=== PATIENT | female | born 1955 | race Caucasian/White ===

== ENCOUNTER 2018-01-02 13:46 | Emergency (ER) | payer MEDICAID ==
[~2018-01-02] VITALS: Ht 165.1 cm; Wt 100.0 kg
[~2018-01-02 13:46] MED LIST: AMIO200T57 PO; DAPA10TA PO; ENOX30SY10 SUBCUT; ENOX80SY7 SUBCUT; GLIM4TAB PO; LEVO750T21 PO; LISI2.5T2 PO; METF10002 PO; METO25TA6 PO; WARF5TAB PO
[2018-01-02 14:24] LABS: BASOPHILS # (AUTO) 0.1 X10'3 (0-0.2); BASOPHILS % (AUTO) 0.3 % (0-1); EOSINOPHILS # (AUTO) 0.5 X10'3 (0-0.9); EOSINOPHILS % (AUTO) 2.9 % (0-6); HEMATOCRIT 25.3 % (35.0-45.0); HEMOGLOBIN 7.3 g/dl (12.0-16.0); LYMPHOCYTES # (AUTO) 2.1 X10'3 (1.1-4.8); LYMPHOCYTES % (AUTO) 11.7 % (21-51); MEAN CORPUSCULAR HEMOGLOBIN 16.2 PG (27.0-31.0); MEAN CORPUSCULAR HGB CONC 28.7 % (33.0-36.5); MEAN CORPUSCULAR VOLUME 56.4 FL (78-98); MEAN PLATELET VOLUME 7.1 FL (7.4-10.4); MONOCYTES # (AUTO) 1.3 X10'3 (0-0.9); MONOCYTES % (AUTO) 7.2 % (2-12); NEUTROPHILS % (AUTO) 77.9 % (42-75); PLATELET COUNT 431 X10'3 (140-440); RED BLOOD COUNT 4.49 X10'6 (4.20-5.60); RED CELL DISTRIBUTION WIDTH 22.5 % (11.5-14.5)
[2018-01-02 14:44] LABS: ANISOCYTOSIS 3+; HYPOCHROMASIA 2+; MICROCYTOSIS 3+; PLATELET ESTIMATE NORMAL
[2018-01-02 14:45] LABS: ELLIPTOCYTES FEW; STOMATOCYTES 1+; TEAR DROP CELLS FEW
[2018-01-02 15:06] LABS: POLYCHROMASIA 1+
[2018-01-02 15:07] LABS: GIANT PLATELET FEW; LARGE PLATELETS FEW
[2018-01-02 15:08] LABS: SCHISTOCYTES FEW; SPHEROCYTES FEW
[2018-01-02 16:31] LABS: CLARITY,URINE CLEAR (Clear); COLOR,URINE YELLOW (Yellow); GLUCOSE, URINE 250 mg/dl (Neg); KETONES,URINE NEGATIVE (Neg); LEUKOCYTE ESTERASE ,URINE NEGATIVE (Neg); NITRITES, URINE NEGATIVE (Neg); OCCULT BLOOD,URINE LARGE (Neg); PROTEIN,URINE NEGATIVE (Neg); UROBILINOGEN,URINE 0.2 E.U/dL (0.2-1.0)
[2018-01-02 16:33] LABS: UA COLLECTION TYPE CLN CATCH MIDSTREAM
[2018-01-02 16:42] LABS: BACTERIA,URINE NONE SEEN /HPF (Neg); RBC,URINE 0-2 /HPF (0-2); SQUAMOUS EPITHELIAL CELL,UR FEW /LPF (FEW); WBC,URINE 0-4 /HPF (0-4)
[2018-01-02] MEDS ORDERED: FERR325T28 PO (16:47)
[2018-01-02 17:04] VITALS: BP 152/82
[2018-01-06 10:23] LABS: OCCULT BLOOD STOOL NEGATIVE (Neg)
== END 2018-01-02 17:07 | disposition home or self-care (01) ==
LOC: ER 13:46
DX: D64.9 Anemia, unspecified (principal); D72.829 Elevated white blood cell count, unspecified; I48.91 Unspecified atrial fibrillation; I10 Essential (primary) hypertension; E11.9 Type 2 diabetes mellitus without complications; Z88.8 Allergy status to other drugs, medicaments and biological substances
CPT/HCPCS: 36415; 71046; 81001; 82272; 85025; 86885; 86900; 86901; 93005; 99285

== ENCOUNTER 2018-03-11 10:27 | Day surgery (SDC) | payer MEDICAID ==
[~2018-03-11] VITALS: Ht 162.6 cm; Wt 95.2 kg
[2018-03-11] VITALS (9 sets, daily range): BP systolic 142–189; BP diastolic 53–96
[~2018-03-11 10:27] MED LIST changes: -METF10002 PO; +METF10004 PO
[2018-03-11] MEDS ORDERED: normal saline 1000ml 1,000 ML IV SCH (10:50)
[2018-03-11] MEDS ORDERED: MIDAZolam 5mg/ml 2ml vial IV ONE (10:55)
[2018-03-11] MEDS ORDERED: fentaNYL/PF 50MCG/1 ML 2ML syringe IV ONE (10:55)
[2018-03-11] MEDS ORDERED: LOSA50TA37 PO (12:08)
[2018-03-11] MEDS ORDERED: FURO-150 PO (12:08)
[2018-03-11] MEDS ORDERED: DIGO250T77 PO (12:08)
[2018-03-11] MEDS ORDERED: FERR-119 PO (12:08)
[2018-03-11] MEDS ORDERED: DILT240C51 PO (12:08)
[2018-03-11] MEDS ORDERED: ONDA4TAB9 SL (12:08)
[2018-03-11] MEDS ORDERED: APIX5TAB3 PO (12:08)
[2018-03-11] MEDS ORDERED: METO100T14 PO (12:08)
[2018-03-11] MEDS ORDERED: ACET250T3 PO (12:08)
== END 2018-03-11 14:45 | disposition home or self-care (01) ==
LOC: SSTAY O 10:27
PROVIDERS: ATTEND Internal Medicine Interventional Cardiology
DX: I48.2 Chronic atrial fibrillation (principal); I34.0 Nonrheumatic mitral (valve) insufficiency; I10 Essential (primary) hypertension; E11.9 Type 2 diabetes mellitus without complications; I27.20 Pulmonary hypertension, unspecified; Z79.01 Long term (current) use of anticoagulants; Z86.73 Personal history of transient ischemic attack (TIA), and cerebral infarction without residual deficits; Z79.84 Long term (current) use of oral hypoglycemic drugs; Z91.013 Allergy to seafood; Z88.8 Allergy status to other drugs, medicaments and biological substances; Z79.899 Other long term (current) drug therapy
CPT/HCPCS: 82948; 93005; 93312; J2250; J3010; J7030; A4620

== ENCOUNTER 2020-12-01 06:06 | Day surgery (SDC) | payer MEDICARE ==
[~2020-12-01] VITALS: Ht 165.1 cm; Wt 107.8 kg
[2020-12-01] VITALS (9 sets, daily range): BP systolic 153–174; BP diastolic 82–103
[~2020-12-01 06:06] MED LIST changes: +ACET500C46 PO; -AMIO200T57 PO; +APIX5TAB3 PO; -DAPA10TA PO; +DILT240C51 PO; -ENOX30SY10 SUBCUT; -ENOX80SY7 SUBCUT; +FERR324T PO; +FURO-150 PO; -GLIM4TAB PO; -LEVO750T21 PO; -LISI2.5T2 PO; +LOSA50TA64 PO; -METF10004 PO; +METO100T14 PO; -METO25TA6 PO; +ONDA4TAB9 SL; -WARF5TAB PO
[2020-12-01] MEDS ORDERED: LISI40TA13 PO (07:08)
[2020-12-01] MEDS ORDERED: albumin 25% 100mL bottle x 1 IV PRN (09:55)
[2020-12-01] MEDS ORDERED: normal saline 1000ml 1,000 ML IV PRN (09:55)
[2020-12-01 10:19] LABS: TOTAL PROTEIN,BODY FLUID 4.6 G/DL
== END 2020-12-01 10:50 | disposition home or self-care (01) ==
LOC: SSTAY O 06:06
PROVIDERS: ATTEND Radiology Vascular & Interventional Radiology
DX: R18.8 Other ascites (principal); I48.91 Unspecified atrial fibrillation; E11.9 Type 2 diabetes mellitus without complications; I10 Essential (primary) hypertension; H54.8 Legal blindness, as defined in USA; Z85.41 Personal history of malignant neoplasm of cervix uteri; Z79.01 Long term (current) use of anticoagulants; Z91.013 Allergy to seafood; Z88.8 Allergy status to other drugs, medicaments and biological substances; Z79.899 Other long term (current) drug therapy
CPT/HCPCS: 49083; 82945; 84157; P9047

== ENCOUNTER 2021-03-22 06:56 | Day surgery (SDC) | payer MEDICARE ==
[~2021-03-22] VITALS: Ht 162.6 cm; Wt 102.3 kg
[2021-03-22] VITALS (10 sets, daily range): BP systolic 153–173; BP diastolic 93–130
[~2021-03-22 06:56] MED LIST changes: -FERR324T PO; +LISI40TA13 PO; -LOSA50TA64 PO; -ONDA4TAB9 SL
[2021-03-22] MEDS ORDERED: albumin 25% 100mL bottle x 1 IV PRN (07:25)
== END 2021-03-22 11:15 | disposition home or self-care (01) ==
LOC: SSTAY O 06:56
PROVIDERS: ATTEND Radiology Diagnostic Radiology
DX: R18.8 Other ascites (principal); E11.9 Type 2 diabetes mellitus without complications; I10 Essential (primary) hypertension; I48.91 Unspecified atrial fibrillation; H54.8 Legal blindness, as defined in USA; Z85.41 Personal history of malignant neoplasm of cervix uteri; Z79.01 Long term (current) use of anticoagulants; Z88.8 Allergy status to other drugs, medicaments and biological substances; Z79.899 Other long term (current) drug therapy
CPT/HCPCS: 49083; P9047

== ENCOUNTER 2021-07-21 08:04 | Day surgery (SDC) | payer MEDICARE ==
[~2021-07-21] VITALS: Ht 165.1 cm; Wt 102.6 kg
[2021-07-21] VITALS (8 sets, daily range): BP systolic 122–153; BP diastolic 57–89
[2021-07-21] MEDS ORDERED: albumin 25% 100mL bottle x 1 IV PRN (08:35)
[2021-07-21] MEDS ORDERED: METF-438 PO (08:46)
[2021-07-21] MEDS ORDERED: LIDOcaine 1% (10mg/ml) 2ml vial ONE (08:49)
== END 2021-07-21 11:09 | disposition home or self-care (01) ==
LOC: SSTAY O 08:04
PROVIDERS: ATTEND Preventive Medicine Aerospace Medicine
DX: R18.8 Other ascites (principal); R14.0 Abdominal distension (gaseous); I10 Essential (primary) hypertension; E11.9 Type 2 diabetes mellitus without complications; I48.91 Unspecified atrial fibrillation; Z85.41 Personal history of malignant neoplasm of cervix uteri; Z79.84 Long term (current) use of oral hypoglycemic drugs; Z79.899 Other long term (current) drug therapy; Z79.01 Long term (current) use of anticoagulants; Z91.013 Allergy to seafood; Z88.8 Allergy status to other drugs, medicaments and biological substances
CPT/HCPCS: 49083; J2001; P9047

== ENCOUNTER 2021-08-18 08:10 | Day surgery (SDC) | payer MEDICARE ==
[~2021-08-18] VITALS: Ht 165.1 cm; Wt 104.1 kg
[~2021-08-18 08:10] MED LIST changes: +METF-438 PO
[2021-08-18] MEDS ORDERED: LIDOcaine 1% 30ml preserv. free vial IJ STA (08:49)
[2021-08-18] MEDS ORDERED: albumin (human) 25% 100 ML IV solution IV PRN (09:05)
[2021-08-18 09:09] VITALS: BP 135/83
[2021-08-18] MEDS ORDERED: albumin 25% 100mL bottle x 1 IV PRN (09:30)
[2021-08-18 09:45] VITALS: BP 172/110
[2021-08-18 10:00] VITALS: BP 160/96
[2021-08-18 10:15] VITALS: BP 159/105
[2021-08-18 10:21] VITALS: BP 131/91
[2021-08-18 10:30] VITALS: BP 122/50
== END 2021-08-18 10:40 | disposition home or self-care (01) ==
LOC: SSTAY O 08:10
PROVIDERS: ATTEND Radiology Vascular & Interventional Radiology
DX: R18.8 Other ascites (principal); R14.0 Abdominal distension (gaseous); E11.9 Type 2 diabetes mellitus without complications; I10 Essential (primary) hypertension; I48.91 Unspecified atrial fibrillation; H54.8 Legal blindness, as defined in USA; Z85.41 Personal history of malignant neoplasm of cervix uteri; Z91.013 Allergy to seafood
CPT/HCPCS: 49083; J2001; P9047

== ENCOUNTER 2021-09-25 06:49 | Day surgery (SDC) | payer MEDICARE ==
[~2021-09-25] VITALS: Ht 165.1 cm; Wt 104.1 kg
[2021-09-25 07:13] VITALS: BP 128/87
[2021-09-25] MEDS ORDERED: albumin 25% 100mL bottle x 1 IV PRN (07:15)
[2021-09-25] MEDS ORDERED: normal saline 1000ml 1,000 ML IV PRN (07:15)
[2021-09-25] MEDS ORDERED: LIDOcaine 1% 30ml preserv. free vial SQ STA (07:24)
[2021-09-25 09:00] VITALS: BP 144/108
[2021-09-25 09:28] VITALS: BP 151/90
== END 2021-09-25 09:40 | disposition home or self-care (01) ==
LOC: SSTAY O 06:49
PROVIDERS: ATTEND Radiology Diagnostic Radiology
DX: R18.8 Other ascites (principal); I10 Essential (primary) hypertension; E11.9 Type 2 diabetes mellitus without complications; I48.91 Unspecified atrial fibrillation; H54.8 Legal blindness, as defined in USA; Z79.01 Long term (current) use of anticoagulants; Z85.41 Personal history of malignant neoplasm of cervix uteri; Z88.8 Allergy status to other drugs, medicaments and biological substances; Z91.013 Allergy to seafood; Z79.84 Long term (current) use of oral hypoglycemic drugs; Z79.899 Other long term (current) drug therapy
CPT/HCPCS: 49083; P9047; 36569; 76937

== ENCOUNTER 2021-10-19 06:07 | Day surgery (SDC) | payer MEDICARE ==
[2021-10-19] VITALS (7 sets, daily range): BP systolic 135–170; BP diastolic 74–90
[~2021-10-19] VITALS: Ht 165.1 cm; Wt 104.9 kg
[2021-10-19] MEDS ORDERED: albumin 25% 100mL bottle x 1 IV PRN (06:35)
[2021-10-19] MEDS ORDERED: LIDOcaine 1% 30ml preserv. free vial IJ STA (07:39)
== END 2021-10-19 09:30 | disposition home or self-care (01) ==
LOC: SSTAY O 06:07
PROVIDERS: ATTEND Preventive Medicine Aerospace Medicine
DX: R18.8 Other ascites (principal); E11.9 Type 2 diabetes mellitus without complications; I10 Essential (primary) hypertension; I48.91 Unspecified atrial fibrillation; H54.8 Legal blindness, as defined in USA; Z85.41 Personal history of malignant neoplasm of cervix uteri; Z79.01 Long term (current) use of anticoagulants; Z79.899 Other long term (current) drug therapy
CPT/HCPCS: 49083; J3490; P9047

== ENCOUNTER 2021-11-23 07:23 | Day surgery (SDC) | payer MEDICARE ==
[~2021-11-23] VITALS: Ht 165.1 cm; Wt 105.1 kg
[2021-11-23] VITALS (9 sets, daily range): BP systolic 109–143; BP diastolic 45–94
[2021-11-23] MEDS ORDERED: ondansetron/PF 4mg/2ml inj IV ONE (08:10)
[2021-11-23] MEDS: albumin 25% 100mL bottle x 1 IV PRN ×2 (09:47→11:09)
== END 2021-11-23 11:15 | disposition home or self-care (01) ==
LOC: SSTAY O 07:23
PROVIDERS: ATTEND Radiology Vascular & Interventional Radiology
DX: R18.8 Other ascites (principal); I48.91 Unspecified atrial fibrillation; E11.9 Type 2 diabetes mellitus without complications; I10 Essential (primary) hypertension; H54.8 Legal blindness, as defined in USA; Z85.41 Personal history of malignant neoplasm of cervix uteri; Z79.01 Long term (current) use of anticoagulants; Z79.899 Other long term (current) drug therapy; Z91.013 Allergy to seafood; Z88.8 Allergy status to other drugs, medicaments and biological substances
CPT/HCPCS: 49083; 82948; J2405; P9047

== ENCOUNTER 2021-12-25 07:04 | Day surgery (SDC) | payer MEDICARE ==
[2021-12-25] VITALS (10 sets, daily range): BP systolic 96–145; BP diastolic 47–78
[~2021-12-25] VITALS: Ht 165.1 cm; Wt 106.5 kg
[2021-12-25] MEDS ORDERED: LIDOcaine 1%/PF 5ML 10 MG/ML VIAL SQ ONE (07:15)
[2021-12-25] MEDS ORDERED: normal saline 1000ml 1,000 ML IV PRN (07:25)
[2021-12-25] MEDS: albumin 25% 100mL bottle x 1 IV PRN ×2 (09:22→11:13)
== END 2021-12-25 10:55 | disposition home or self-care (01) ==
LOC: SSTAY O 07:04
PROVIDERS: ATTEND Radiology Diagnostic Radiology
DX: R18.8 Other ascites (principal); R14.0 Abdominal distension (gaseous); I48.91 Unspecified atrial fibrillation; E11.9 Type 2 diabetes mellitus without complications; I10 Essential (primary) hypertension; H54.8 Legal blindness, as defined in USA; Z88.8 Allergy status to other drugs, medicaments and biological substances; Z91.013 Allergy to seafood; Z85.41 Personal history of malignant neoplasm of cervix uteri; Z79.01 Long term (current) use of anticoagulants; Z79.84 Long term (current) use of oral hypoglycemic drugs; Z79.899 Other long term (current) drug therapy
CPT/HCPCS: 49083; J3490; P9047

== ENCOUNTER 2022-01-19 07:14 | Day surgery (SDC) | payer MEDICARE ==
[~2022-01-19] VITALS: Ht 165.1 cm; Wt 106.6 kg
[2022-01-19] VITALS (7 sets, daily range): BP systolic 122–138; BP diastolic 60–90
[~2022-01-19 07:14] MED LIST changes: -ACET500C46 PO; +ACET500C62 PO
[2022-01-19] MEDS ORDERED: albumin 25% 100mL bottle x 1 IV PRN (07:35)
[2022-01-19] MEDS ORDERED: FURO20TA4 PO (08:09)
[2022-01-19] MEDS ORDERED: LOSA50TA64 PO (08:09)
[2022-01-19] MEDS ORDERED: LIDOcaine 1%/PF 5ML 10 MG/ML VIAL IJ ONE (08:30)
== END 2022-01-19 10:21 | disposition home or self-care (01) ==
LOC: SSTAY O 07:14
PROVIDERS: ATTEND Preventive Medicine Aerospace Medicine
DX: R18.8 Other ascites (principal); R14.0 Abdominal distension (gaseous); E11.9 Type 2 diabetes mellitus without complications; I10 Essential (primary) hypertension; I48.91 Unspecified atrial fibrillation; H54.8 Legal blindness, as defined in USA; Z85.41 Personal history of malignant neoplasm of cervix uteri; Z79.01 Long term (current) use of anticoagulants; Z79.899 Other long term (current) drug therapy
CPT/HCPCS: 49083; J3490; P9047

== ENCOUNTER 2022-02-12 07:28 | Day surgery (SDC) | payer MEDICARE ==
[~2022-02-12] VITALS: Ht 165.1 cm; Wt 108.0 kg
[2022-02-12] VITALS (9 sets, daily range): BP systolic 120–153; BP diastolic 67–93
[~2022-02-12 07:28] MED LIST changes: -FURO-150 PO; +FURO20TA4 PO; -LISI40TA13 PO; +LOSA50TA64 PO
[2022-02-12] MEDS ORDERED: LIDOcaine 1%/PF 5ML 10 MG/ML VIAL IM ONE (08:20)
[2022-02-12] MEDS: albumin 25% 100mL bottle x 1 IV PRN ×2 (09:15→09:55)
== END 2022-02-12 10:45 | disposition home or self-care (01) ==
LOC: SSTAY O 07:28
PROVIDERS: ATTEND Radiology Vascular & Interventional Radiology
DX: R18.8 Other ascites (principal); R14.0 Abdominal distension (gaseous); I48.91 Unspecified atrial fibrillation; E11.9 Type 2 diabetes mellitus without complications; I10 Essential (primary) hypertension; H54.8 Legal blindness, as defined in USA; Z85.41 Personal history of malignant neoplasm of cervix uteri; Z91.013 Allergy to seafood; Z88.8 Allergy status to other drugs, medicaments and biological substances; Z79.01 Long term (current) use of anticoagulants; Z79.899 Other long term (current) drug therapy; Z79.84 Long term (current) use of oral hypoglycemic drugs
CPT/HCPCS: 49083; J3490; P9047

== ENCOUNTER 2022-03-13 06:24 | Day surgery (SDC) | payer MEDICARE ==
[2022-03-13] VITALS (8 sets, daily range): BP systolic 104–129; BP diastolic 55–80
[~2022-03-13] VITALS: Ht 165.1 cm; Wt 112.5 kg
[2022-03-13] MEDS ORDERED: folic acid PO (07:11)
[2022-03-13] MEDS ORDERED: CYAN10007 IM (07:11)
[2022-03-13] MEDS ORDERED: LIDOcaine 1%/PF 5ML 10 MG/ML VIAL SQ ONE (07:20)
[2022-03-13] MEDS: albumin 25% 100mL bottle x 1 IV PRN ×2 (08:53→08:54)
== END 2022-03-13 10:30 | disposition home or self-care (01) ==
LOC: SSTAY O 06:24
PROVIDERS: ATTEND Radiology Vascular & Interventional Radiology
DX: R18.8 Other ascites (principal); R14.0 Abdominal distension (gaseous); E11.9 Type 2 diabetes mellitus without complications; I10 Essential (primary) hypertension; H54.8 Legal blindness, as defined in USA; I48.91 Unspecified atrial fibrillation; Z85.41 Personal history of malignant neoplasm of cervix uteri; Z79.01 Long term (current) use of anticoagulants
CPT/HCPCS: 49083; J3490; P9047; A6258

== ENCOUNTER 2022-04-04 11:56 | Day surgery (SDC) | payer MEDICARE ==
[~2022-04-04] VITALS: Ht 165.1 cm; Wt 110.9 kg
[~2022-04-04 11:56] MED LIST changes: +CYAN10007 IM; +folic acid PO
[2022-04-04 12:11] VITALS: BP 156/93
[2022-04-04 14:01] VITALS: BP 147/93
[2022-04-04 14:17] VITALS: BP 123/73
[2022-04-04 14:32] VITALS: BP 115/71
[2022-04-04 14:47] VITALS: BP 125/73
[2022-04-04] MEDS: albumin 25% 100mL bottle x 1 IV PRN ×2 (14:47→14:48)
[2022-04-04 15:02] VITALS: BP 129/44
== END 2022-04-04 15:20 | disposition home or self-care (01) ==
LOC: SSTAY O 11:56
PROVIDERS: ATTEND Radiology Diagnostic Radiology
DX: R18.8 Other ascites (principal); I48.91 Unspecified atrial fibrillation; E11.9 Type 2 diabetes mellitus without complications; I10 Essential (primary) hypertension; H54.8 Legal blindness, as defined in USA; Z79.899 Other long term (current) drug therapy; Z79.01 Long term (current) use of anticoagulants; Z85.41 Personal history of malignant neoplasm of cervix uteri
CPT/HCPCS: 49083; P9047; Z7610; A6258

== ENCOUNTER 2022-05-31 06:45 | Day surgery (SDC) | payer MEDICARE ==
[~2022-05-31] VITALS: Ht 165.1 cm; Wt 109.2 kg
[2022-05-31] VITALS (8 sets, daily range): BP systolic 134–156; BP diastolic 66–103
[2022-05-31] MEDS ORDERED: LIDOcaine 1%/PF 5ML 10 MG/ML VIAL IJ ONE (07:40)
[2022-05-31] MEDS: albumin 25% 100mL bottle x 1 IV PRN ×2 (08:47→09:25)
--- NOTE | 2022-05-31 15:52 | NUR ---
Transferred care to Phu RODRIGUEZ.
== END 2022-05-31 10:10 | disposition home or self-care (01) ==
LOC: SSTAY O 06:45
PROVIDERS: ATTEND Radiology Vascular & Interventional Radiology
DX: R18.8 Other ascites (principal); E11.9 Type 2 diabetes mellitus without complications; H54.8 Legal blindness, as defined in USA; I10 Essential (primary) hypertension; Z79.01 Long term (current) use of anticoagulants; D50.9 Iron deficiency anemia, unspecified; I48.91 Unspecified atrial fibrillation; Z85.41 Personal history of malignant neoplasm of cervix uteri; Z79.899 Other long term (current) drug therapy; Z98.890 Other specified postprocedural states
CPT/HCPCS: 49083; J3490; P9047; A6258; A6449

== ENCOUNTER 2022-06-21 06:56 | Day surgery (SDC) | payer MEDICARE ==
[2022-06-21] VITALS (11 sets, daily range): BP systolic 139–164; BP diastolic 67–106
[~2022-06-21] VITALS: Ht 165.1 cm; Wt 106.2 kg
[~2022-06-21 06:56] MED LIST changes: -folic acid PO
[2022-06-21] MEDS ORDERED: LIDOcaine 1%/PF 5ML 10 MG/ML VIAL IJ ONE (07:50)
[2022-06-21] MEDS: albumin 25% 100mL bottle x 1 IV PRN ×2 (08:48→09:35)
== END 2022-06-21 10:40 | disposition home or self-care (01) ==
LOC: SSTAY O 06:56
PROVIDERS: ATTEND Radiology Vascular & Interventional Radiology
DX: R18.8 Other ascites (principal); I48.91 Unspecified atrial fibrillation; E11.9 Type 2 diabetes mellitus without complications; I10 Essential (primary) hypertension; D50.9 Iron deficiency anemia, unspecified; H54.8 Legal blindness, as defined in USA; Z79.01 Long term (current) use of anticoagulants; Z91.013 Allergy to seafood; Z79.899 Other long term (current) drug therapy; Z85.41 Personal history of malignant neoplasm of cervix uteri
CPT/HCPCS: 49083; J3490; P9047; A6258

== ENCOUNTER 2022-07-09 06:30 | Day surgery (SDC) | payer MEDICARE ==
[~2022-07-09] VITALS: Ht 165.1 cm; Wt 106.0 kg
[2022-07-09] VITALS (7 sets, daily range): BP systolic 130–162; BP diastolic 63–99
[2022-07-09] MEDS ORDERED: LIDOcaine 1% 30ml preserv. free vial SQ STA (08:14)
[2022-07-09] MEDS: albumin 25% 100mL bottle x 1 IV PRN ×2 (08:40→09:13)
--- NOTE | 2022-07-09 09:00 | NUR ---
Reported CBC resulted to Diana RODRIGUEZ, results to be addressed with MD VIKTORIYA.
== END 2022-07-09 09:50 | disposition home or self-care (01) ==
LOC: SSTAY O 06:30
PROVIDERS: ATTEND Radiology Diagnostic Radiology
DX: R18.8 Other ascites (principal); I48.91 Unspecified atrial fibrillation; E11.9 Type 2 diabetes mellitus without complications; I10 Essential (primary) hypertension; H54.8 Legal blindness, as defined in USA; D50.9 Iron deficiency anemia, unspecified; Z79.01 Long term (current) use of anticoagulants; Z79.899 Other long term (current) drug therapy; Z98.890 Other specified postprocedural states; Z91.013 Allergy to seafood
CPT/HCPCS: 49083; J3490; P9047; A6258; A6449

== ENCOUNTER 2022-07-31 07:29 | Day surgery (SDC) | payer MEDICARE ==
[2022-07-31] VITALS (10 sets, daily range): BP systolic 130–159; BP diastolic 73–124
[~2022-07-31] VITALS: Ht 165.1 cm; Wt 109.6 kg
[2022-07-31] MEDS ORDERED: LIDOcaine 1% 30ml preserv. free vial SQ STA (07:51)
[2022-07-31] MEDS: albumin 25% 100mL bottle x 1 IV PRN ×2 (09:50→09:51)
== END 2022-07-31 11:20 | disposition home or self-care (01) ==
LOC: SSTAY O 07:29
PROVIDERS: ATTEND Radiology Diagnostic Radiology
DX: R18.8 Other ascites (principal); I48.91 Unspecified atrial fibrillation; E11.9 Type 2 diabetes mellitus without complications; I10 Essential (primary) hypertension; D50.9 Iron deficiency anemia, unspecified; H54.8 Legal blindness, as defined in USA
CPT/HCPCS: 49083; J3490; P9047; A6258

== ENCOUNTER 2022-08-14 06:37 | Day surgery (SDC) | payer MEDICARE ==
[2022-08-14] VITALS (8 sets, daily range): BP systolic 116–143; BP diastolic 71–87
[~2022-08-14] VITALS: Ht 165.1 cm; Wt 106.6 kg
[2022-08-14] MEDS ORDERED: normal saline 1000ml 1,000 ML IV PRN (07:05)
[2022-08-14 07:12] LABS: BASOPHILS # (AUTO) 0.1 X10'3 (0-0.2); BASOPHILS % (AUTO) 0.5 % (0-1); EOSINOPHILS # (AUTO) 0.1 X10'3 (0-0.9); EOSINOPHILS % (AUTO) 1.2 % (0-6); HEMATOCRIT 32.9 % (35.0-45.0); HEMOGLOBIN 10.1 g/dl (12.0-16.0); LYMPHOCYTES # (AUTO) 0.8 X10'3 (1.1-4.8); LYMPHOCYTES % (AUTO) 7.4 % (21-51); MEAN CORPUSCULAR HEMOGLOBIN 22.9 PG (27.0-31.0); MEAN CORPUSCULAR HGB CONC 30.8 g/dL (33.0-36.5); MEAN CORPUSCULAR VOLUME 74.3 FL (78-98); MEAN PLATELET VOLUME 6.4 FL (7.4-10.4); MONOCYTES % (AUTO) 9.3 % (2-12); NEUTROPHILS # (AUTO) 9.1 X10'3 (1.8-7.7); NEUTROPHILS % (AUTO) 81.6 % (42-75); PLATELET COUNT 328 X10'3 (140-440); RED BLOOD COUNT 4.42 X10'6 (4.20-5.60); WHITE BLOOD COUNT 11.2 X10'3 (4.5-11.0)
[2022-08-14 07:53] LABS: ALBUMIN 2.8 G/DL (3.4-5.0); ANION GAP 10 (8-16); BLOOD UREA NITROGEN 17 MG/DL (7-18); BUN/CREATININE RATIO 17.3 (6.6-38.0); CHLORIDE 108 MMOL/L (99-107); CREATININE 0.98 MG/DL (0.40-0.90); GLUCOSE 148 MG/DL (70-104); POTASSIUM 4.3 MMOL/L (3.5-5.1); SODIUM 140 MMOL/L (135-145); TOTAL CARBON DIOXIDE 22.2 MMOL/L (24-32); eGFR 56 ML/MIN
[2022-08-14] MEDS ORDERED: midazolam 1 mg/ML 2ml injection ONE (08:10)
[2022-08-14] MEDS ORDERED: FENTANYL CITRATE/PF 50 MCG/1 ML VIAL ONE (08:10)
[2022-08-14] MEDS ORDERED: LIDOcaine 1% 30ml preserv. free vial ONE (08:11)
[2022-08-14 08:18] LABS: ANISOCYTOSIS 2+; MICROCYTOSIS 1+; PLATELET ESTIMATE NORMAL
[2022-08-14 08:19] LABS: POLYCHROMASIA 1+
[2022-08-14] MEDS ORDERED: MESSAGE TO NURSING PO NR (10:00)
[2022-08-14] MEDS ORDERED: albumin (human) 25% 100 ML IV solution IV ONE (10:40)
--- NOTE | 2022-08-14 11:38 | NUR ---
Per MICHAEL Cano in IR. OK for patient to DC after albumin infusion complete.
== END 2022-08-14 12:00 | disposition home or self-care (01) ==
LOC: SSTAY O 06:37
PROVIDERS: ATTEND Radiology Vascular & Interventional Radiology
DX: K74.60 Unspecified cirrhosis of liver (principal); R18.8 Other ascites; I48.91 Unspecified atrial fibrillation; E11.9 Type 2 diabetes mellitus without complications; I10 Essential (primary) hypertension; D50.9 Iron deficiency anemia, unspecified; H54.8 Legal blindness, as defined in USA; Z88.8 Allergy status to other drugs, medicaments and biological substances; Z91.013 Allergy to seafood; Z79.899 Other long term (current) drug therapy
CPT/HCPCS: 36415; 37200; 49083; 75889; 75970; 80048; 85025; 85610; 99152; 99153; C1769; C1894; C2625; J2250; J3010; J3490; J7030; P9047; Q9967; 85008; 88307; 88313; A4620

== ENCOUNTER 2022-09-07 07:25 | Day surgery (SDC) | payer MEDICARE ==
[2022-09-07] VITALS (10 sets, daily range): BP systolic 114–139; BP diastolic 54–84
[~2022-09-07] VITALS: Ht 165.1 cm; Wt 110.8 kg
[~2022-09-07 07:25] MED LIST changes: +iohexol 300mg/ml 100ml inj. ONE
[2022-09-07] MEDS ORDERED: LIDOcaine 1% 30ml preserv. free vial SQ STA (07:42)
[2022-09-07] MEDS: albumin 25% 100mL bottle x 1 IV PRN ×2 (09:04→09:37)
== END 2022-09-07 10:35 | disposition home or self-care (01) ==
LOC: SSTAY O 07:25
PROVIDERS: ATTEND Radiology Vascular & Interventional Radiology
DX: R18.8 Other ascites (principal); K74.60 Unspecified cirrhosis of liver; I48.91 Unspecified atrial fibrillation; I10 Essential (primary) hypertension; E11.9 Type 2 diabetes mellitus without complications; D50.9 Iron deficiency anemia, unspecified; H54.8 Legal blindness, as defined in USA; Z88.8 Allergy status to other drugs, medicaments and biological substances; Z79.899 Other long term (current) drug therapy; Z79.01 Long term (current) use of anticoagulants; Z85.41 Personal history of malignant neoplasm of cervix uteri
CPT/HCPCS: 49083; J3490; P9047; Q9967; A6258

== ENCOUNTER 2022-09-25 07:04 | Day surgery (SDC) | payer MEDICARE ==
[~2022-09-25] VITALS: Ht 165.1 cm; Wt 107.8 kg
[2022-09-25] VITALS (10 sets, daily range): BP systolic 118–152; BP diastolic 59–91
[~2022-09-25 07:04] MED LIST changes: -iohexol 300mg/ml 100ml inj. ONE
[2022-09-25] MEDS ORDERED: LIDOcaine 1% 30ml preserv. free vial SQ STA (07:17)
[2022-09-25] MEDS: albumin 25% 100mL bottle x 1 IV PRN ×2 (09:01→09:49)
== END 2022-09-25 10:25 | disposition home or self-care (01) ==
LOC: SSTAY O 07:04
PROVIDERS: ATTEND Radiology Vascular & Interventional Radiology
DX: R18.8 Other ascites (principal); K76.0 Fatty (change of) liver, not elsewhere classified; I48.91 Unspecified atrial fibrillation; E11.9 Type 2 diabetes mellitus without complications; I11.0 Hypertensive heart disease with heart failure; I50.9 Heart failure, unspecified; H54.8 Legal blindness, as defined in USA; D50.9 Iron deficiency anemia, unspecified; C53.9 Malignant neoplasm of cervix uteri, unspecified; Z91.013 Allergy to seafood; Z88.8 Allergy status to other drugs, medicaments and biological substances; Z79.84 Long term (current) use of oral hypoglycemic drugs; Z79.01 Long term (current) use of anticoagulants; Z79.899 Other long term (current) drug therapy
CPT/HCPCS: 49083; J3490; P9047; A6258; A6449

== ENCOUNTER 2022-10-16 07:59 | Day surgery (SDC) | payer MEDICARE ==
[~2022-10-16] VITALS: Ht 165.1 cm; Wt 108.5 kg
[2022-10-16 08:20] VITALS: BP 106/60
[2022-10-16] MEDS ORDERED: albumin 25% 100mL bottle x 1 IV PRN (08:20)
[2022-10-16] MEDS ORDERED: LIDOcaine 1% 30ml preserv. free vial IJ STA (08:34)
[2022-10-16] MEDS ORDERED: benzonatate 100mg capsule PO ONE (08:35)
[2022-10-16 10:20] VITALS: BP 96/52
[2022-10-16 10:34] VITALS: BP 108/74
[2022-10-16 10:47] VITALS: BP 100/56
[2022-10-16 11:02] VITALS: BP 97/50
[2022-10-16 11:15] VITALS: BP 107/48
== END 2022-10-16 11:25 | disposition home or self-care (01) ==
LOC: SSTAY O 07:59
PROVIDERS: ATTEND Radiology Vascular & Interventional Radiology
DX: R18.8 Other ascites (principal); I48.91 Unspecified atrial fibrillation; E11.9 Type 2 diabetes mellitus without complications; I10 Essential (primary) hypertension; D50.9 Iron deficiency anemia, unspecified; H54.8 Legal blindness, as defined in USA; Z85.41 Personal history of malignant neoplasm of cervix uteri; Z79.899 Other long term (current) drug therapy; Z79.01 Long term (current) use of anticoagulants; Z79.84 Long term (current) use of oral hypoglycemic drugs
CPT/HCPCS: 49083; 82948; J3490; P9047; A6258